=== PATIENT | male | born 1990 | race Caucasian/White ===

== ENCOUNTER → 2017-06-29 | Outpatient (CLI) | payer BC | LOC: GMAM 15:58 | PROVIDERS: ATTEND Family Medicine | DX: R94.5 Abnormal results of liver function studies (principal) ==

== ENCOUNTER → 2017-11-10 | Outpatient (CLI) | payer BC ==
--- NOTE | 2017-11-10 11:25 | US ---
EXAM DESCRIPTION: Right upper quadrant ultrasound. CLINICAL HISTORY: 27 years Male, GENERALIZED ABDOMINAL PAIN COMPARISON: None available. TECHNIQUE: Multiple transverse and longitudinal static sonographic images through the right upper quadrant of the abdomen were obtained. FINDINGS: The pancreas is not well-visualized secondary to overlying bowel gas. The liver demonstrates mildly increased echogenicity with normal echotexture. No intrahepatic biliary ductal dilatation. No focal masses are identified sonographically. The gallbladder is moderately distended and demonstrates layering hyperechoic material, likely represents sludge. No evidence of shadowing gallstones.. No evidence of wall thickening or hyperemia or pericholecystic fluid. The common duct is nondilated and measures 4 mm. The right kidney measures 9.8 x 4.5 x 5.5 cm. No hydronephrosis or perinephric fluid collections. IMPRESSION: 1. Mildly increased echogenicity of the liver likely represents fatty infiltration versus parenchymal liver disease. 2. No sonographic evidence of cholelithiasis or acute cholecystitis. Gallbladder sludge noted. Electronically signed by: Michael Macias MD 11/10/2017 11:24 AM CDT
== END ==
LOC: US 08:13
PROVIDERS: ATTEND Family Medicine
DX: R10.84 Generalized abdominal pain (principal)